=== PATIENT | male | born 1930 | race Caucasian/White ===

== ENCOUNTER 2016-10-24 17:11 | Inpatient (IN) | payer MEDICARE, OTHER ==
[~2016-10-24] VITALS: Ht 172.7 cm; Wt 76.5 kg
[~2016-10-24 17:11] MED LIST: ARICEPT5 MG PO; AZELASTINE137 MCG/0. NASAL; BAYER CHEWABLE81 MG PO; CELEXA20 MG PO; DIABETA5 MG PO; FERROUS SULFAT325 MG PO; GLUCOPHAGE500 MG PO; GLYBURIDE2.5 MG PO; ISOSORBIDE MONO60 M1 PO; LANOXIN125 MCG PO; LASIX20 MG PO; MEDROL DOSE PACK4 MG PO; MUCUS RELIEF400 MG PO; OMEGA 3 FISH OI1 CAP PO; OMNICEF300 MG PO; PRAVACHOL40 MG PO; PRILOSEC20 MG PO; VITAMIN D31000 UNIT PO; XARELTO20 MG PO; XOPENEX 1.1.25 MG/3 UPD; ZANTAC150 MG PO
--- NOTE | 2016-10-24 17:30 | NUR ---
RECEIVED PT VIA WHEELCHAIR ESCORTED BY HOSPITAL STAFF. WILL CONTINUE WITH ADMITTING PT AND CONTINUE TO MONITOR.
[2016-10-24 17:32] VITALS: BP 182/75; BMI 23.9
[2016-10-24 18:01] LABS: BASOPHILS 0.3 % (0.0-2.0); HEMATOCRIT 36.9 % (42.0-54.0); HEMOGLOBIN 11.3 g/dL (13.5-17.5); IMMATURE GRANULOCYTES 0.1 % (0-5); LYMPHOCYTES 12.8 % (15-50); MCH 24.9 pg (26.0-34.0); MCHC 30.6 g/dL (31.0-37.0); MCV 81.3 fL (80.0-100.0); MEAN PLATELET VOLUME 10.3 fL (7.4-10.4); MONOCYTES 13.2 % (2-11); NEUTROPHILS 68.6 % (40-80); RBC 4.54 10x6/uL (4.20-6.10); RDW 15.7 % (11.5-14.5); WBC 7.2 10x3/uL (4.8-10.8)
[2016-10-24 18:02] LABS: PLATELET COUNT 204 10x3/uL (130-400)
[2016-10-24 18:22] LABS: ALBUMIN 3.3 g/dL (3.4-5.0); ANION GAP 11.2 mmol/L (8-16); BILIRUBIN - TOTAL 0.18 mg/dL (0.2-1.3); CARBON DIOXIDE 31.3 mmol/L (21.0-32.0); CREATININE - SERUM 1.4 mg/dL (0.6-1.3); POTASSIUM - SERUM 4.5 mmol/L (3.5-5.1); PROTEIN - SERUM 6.7 g/dL (6.4-8.2)
--- NOTE | 2016-10-24 18:31 | NUR ---
QUICKSTART DONE, ADMISSION ASSESSMENT DONE, AND ADMISSION HISTORY DONE. PT COULD NOT TELL ME HIS HOME MEDICATIONS AND SON COULD NOT TELL ME WHAT HOME MEDICATIONS PT IS ON. OTHER SON WENT HOME TO GET PTS MEDICAIONS SO WE COULD UPDATE HOME MEDICATION LIST. AWAITING SON TO GET BACK WITH HOME MEDICAIONS AND WILL PASS THIS ON IN REPORT. PT IS ON ROOM AIR WITH O2 SAT AT 97%. ATTEMPTED IV X 2 STICKS, 22G INSERTED INTO PTS RIGHT AC, TOLERATED WELL. IV FLUIDS AND ANTIBIOTICS STARTED ORDERED WITH NS RUNNING AT 100CC. NON-SKID SOCKS PLACED ON PT AND YELLOW ID BAND. PT IS ALERT TO SELF AND ORIENTED TO PERSON AND PLACE BUT DISORIENTED TO TIME, PT STATED HE DID NOT KNOW WHAT YEAR IT IS. SON IS AT BEDSIDE. 1838- PT IS CURRENTLY UP ON SIDE OF BED EATING DINNER. SON IS AT BEDSIDE. WILL CONTINUE TO MONITOR AND AWAIT OTHER SON TO GET BACK WITH HOME MEDICATIONS TO UPDATE HOME MEDICATION LIST. WILL PASS THIS ON IN REPORT.
[2016-10-24 20:00] VITALS: BP 182/71
--- NOTE | 2016-10-24 21:37 | NUR ---
NURSE ROUNDS 19:00 - PT LYING IN BED, AWAKE, ALERT, EXTREMELY HARD OF HEARING, SON AT BEDSIDE. PT DENIES ANY ACUTE NEEDS. SON DID LEAVE BUT STATED HE WOULD BE BACK. CONTINUE TO MONITOR PT CLOSELY. BED LOW, CALL LIGHT IN REACH, AND I DEMONSTRATED TO PT HOW AND WHEN TO USE HIS CALL LIGHT. PT NODDED IN AGREEMENT THAT HE WOULD CALL FOR ANY ASSISTANCE. HOB 30 DEGREES.
--- NOTE | 2016-10-24 23:51 | NUR ---
RADHA PAD PLACED UNDER PT HIS SON HAS WARNED US THAT HE TENDS TO WANDER DURING THE NIGHT. PTS IS ALSO ADMITTED HERE R/T FALLING EARLIER IN THE DAY. THE FAMILY IS CONCERNED HE WILL TRY TO GET UP AND GO SEE HER. I WILL CONTINUE TO MONITOR HIM CLOSELY.
[2016-10-25] VITALS: BP 171/63
--- NOTE | 2016-10-25 01:35 | NUR ---
PT LYING ON HIS LEFTT SIDE, EYES CLOSED, RESPIRATIONS EVEN AND UNLABORED, CONTINUE TO MONITOR CLOSELY.
--- NOTE | 2016-10-25 03:50 | NUR ---
PT PULLED HIS IV OUT. WILL ATTEMPT TO RESITE.
--- NOTE | 2016-10-25 03:54 | NUR ---
BATH GIVEN AND LINENS CHANGED PER VERONICA RENU
[2016-10-25 04:00] VITALS: BP 179/79
[2016-10-25 05:10] LABS: BASOPHILS 0.2 % (0.0-2.0); EOSINOPHILS 6.2 % (0-7); HEMATOCRIT 33.6 % (42.0-54.0); HEMOGLOBIN 10.4 g/dL (13.5-17.5); IMMATURE GRANULOCYTES 0.2 % (0-5); LYMPHOCYTES 15.9 % (15-50); MCH 24.8 pg (26.0-34.0); MCV 80.2 fL (80.0-100.0); MEAN PLATELET VOLUME 10.1 fL (7.4-10.4); MONOCYTES 15.5 % (2-11); PLATELET COUNT 186 10x3/uL (130-400); RBC 4.19 10x6/uL (4.20-6.10); RDW 15.5 % (11.5-14.5); WBC 5.4 10x3/uL (4.8-10.8)
[2016-10-25 06:01] LABS: ALBUMIN 2.9 g/dL (3.4-5.0); ANION GAP 9.2 mmol/L (8-16); BILIRUBIN - TOTAL 0.34 mg/dL (0.2-1.3); CALCIUM 8.6 mg/dL (8.5-10.1); CARBON DIOXIDE 31.7 mmol/L (21.0-32.0); CREATININE - SERUM 1.5 mg/dL (0.6-1.3); POTASSIUM - SERUM 3.9 mmol/L (3.5-5.1); PROTEIN - SERUM 6.3 g/dL (6.4-8.2)
[2016-10-25 07:32] VITALS: BP 166/68
--- NOTE | 2016-10-25 07:49 | NUR ---
AM ROUNDING- PT LAYING ON LEFT SIDE WITH EYES CLOSED SLEEPING. SON IS AT BEDSIDE. PER REPORT FROM ENROLLMENT ELIGIBILITY REPRESENTATIVE NURSE COSTA, WE ARE STILL AWAITING OTHER SON TO BRING PTS HOME MEDICATIONS SO WE CAN UPDATE MEDICATION LIST AND SEE WHEN THE LAST TIME PT TOOK HIS HOME MEDICATIONS WAS. PER REPORT FROM ENROLLMENT ELIGIBILITY REPRESENTATIVE NURSE, PT PULLED OUT IV CATHETER ON ENROLLMENT ELIGIBILITY REPRESENTATIVE. WILL TRY AND CALL [facility] VASCULAR ACCESS NURSE TO SEE ABOUT RESITING IV. ON ROOM AIR. PT HAS HEARING AID TO LEFT EAR, PT IS VERY HARD OF HEARING. NO NEED AT CURRENT TIME. WILL CONTINUE TO MONITOR.
--- NOTE | 2016-10-25 08:08 | NUR ---
CALLED [facility] TO SEE ABOUT GETTING ANOTHER IV. LEFT VOICEMAIL. AWAITING CALLBACK.
--- NOTE | 2016-10-25 08:27 | NUR ---
IV access-22 gauge inserted in left hand . ANISH Yeager
[2016-10-25] MEDS ORDERED: GLYBURIDE2.5 MG PO (10:00)
[2016-10-25] MEDS ORDERED: GLYBURIDE5 M1 PO (10:00)
[2016-10-25] MEDS ORDERED: SINGULAIR10 MG PO (10:03)
[2016-10-25] MEDS ORDERED: DEXILANT60 MG PO (10:04)
--- NOTE | 2016-10-25 10:40 | NUR ---
SCDS PLACED ON PT ORDERED.
[2016-10-25 11:34] VITALS: BP 155/60
--- NOTE | 2016-10-25 12:17 | NUR ---
PTS OTHER SON IN ROOM. SON STATED HE DID NOT BRING PTS HOME MEDICATIONS BECAUSE DR. MORRIS WAS IN ROOM LAST NIGHT AND PER SON DR. MORRIS STATED HE HAD A LIST OF PTS HOME MEDICATIONS. I INFORMED PT THAT WE NEED TO KNOW WHEN THE LAST TIME PT TOOK HOME MEDICATIONS SO WE CAN UPDATE PTS HOME MEDICATION LIST. SON DID NOT KNOW. PT IS VERY LETHARGIC AND IS UNABLE TO TELL ME. WILL CONTINUE TO MONITOR AND SEE ABOUT GETTING AND UPDATE ON WHAT MEDICATIONS PT TOOK LAST.
--- NOTE | 2016-10-25 12:29 | NUR ---
ANISH CLIFFORD ON UNIT STATED THAT SHE TOOK CARE OF PTS MED REC AND HAD CALLED PTS PHARMACY TO SEE WHAT PT WAS CURRENTLY TAKING. ANISH CLIFFORD ALSO STATED THAT SHE HAD SPOKE WITH DR. MORRIS THIS MORNING ABOUT PTS MED REC.
[2016-10-25 12:44] VITALS: Ht 172.7 cm; Wt 76.5 kg
[2016-10-25 15:33] VITALS: BP 169/66
--- NOTE | 2016-10-25 16:56 | NUR ---
Patient Name: DADA GARVIN Admission Status: Urgent Accout number: [id number] Admission Date: 10-24-2016 : 1930 Admission Diagnosis: Attending: SANDER Current LOS: 1 Anticipated DC Date: Planned Disposition: Home Primary Insurance: MEDICARE A & B Discharge Planning Comments: * Is the patient Alert and Oriented? No 0 * How many steps to enter\exit or inside your home? RAMP 0 * PCP DR. MORRIS 0 * Pharmacy [facility] 0 * Preadmission Environment Home with Family 0 * ADLs Partial Dependent 0 * Partial ADLs (Assistance needed) Ambulation Bathing Dressing Medication Management Toileting Transfers 0 * Equipment Cane Nebulizer Oxygen Shower Chair Walker Wheelchair 0 * Other Equipment HOME OXYGEN ONLY, UNKNOWN PROVIDER NO MEDICAL EQUIPMENT PROVIDER PREFERENCE 0 * List name and contact numbers for known caregivers / representatives who currently or will assist patient after discharge: DEE GARVIN, SPOUSE, DADA GARVIN, JR, SON, BIBI MELO, DTR, 0 * Community resources currently utilized None 0 * Please name any agencies selected above. NONE 0 * Additional services required to return to the preadmission environment? No 0 * Can the patient safely return to the preadmission environment? Yes 0 * Has this patient been hospitalized within the prior 30 days at any hospital? No 0 CM MET WITH PT IN ROOM TO DISCUSS DISCHARGE PLANNING AND NEEDS. PT ORIENTED TO SELF ONLY, DIRECTED CM TO SPEAK TO FAMILY. CM MET WITH PT'S SPOUSE AND DAUGHTER IN ROOM 6009. PT'S SPOUSE REPORTS PT LIVING AT HOME DEPENDENT ON SHE AND ADULT CHILDREN FOR EVERYTHING EXCEPT EATING. PT HAS SPOUSE AND ADULT SON LIVING IN THE HOME. THEY HAVE NO OTHER OUTSIDE SERVICES ASSISTING IN THE HOME. CM DISCUSSED AVAILABILITY OF HOME HEALTH, REHAB SERVICES AND MEDICAL EQUIPMENT. PT'S SPOUSE DENIES DISCHARGE NEEDS, REPORTS HER SON WILL PICK PT UP FOR DISCHARGE HOME. PT'S SPOUSE REPORTS THAT THEY DO NOT SEE ANY BENEFIT FROM HOME HEALTH THEY BOTH HAVE USED THEM IN THE PAST; SPOUSE REPORTS FAMILY TAKES CARE OF THEIR NEEDS AT HOME. CM DISCUSSED INPATIENT AND [facility] REHAB SERVICES. PT'S SPOUSE AND DAUGHTER REPORT THAT PT WILL NOT AGREE TO GO ANYWHERE BUT HOME AND WOULD NOT BENEFIT FROM THE SERVICES DUE TO HIS ATTITUDE ABOUT BEING THERE. FAMILY REPORTS PLAN FOR BOTH PT AND SPOUSE TO RETURN HOME AT DISCHARGE. FAMILY PLANS TO TAKE PT HOME AT DISCHARGE AND DENIED DISCHARGE NEEDS AT THIS TIME, REFUSING HOME HEALTH, INPATIENT AND [facility] REHAB. CM TO FOLLOW AND ASSIST NEEDED. Architectural Administrative Assistant: Joshua Collazo
--- NOTE | 2016-10-25 18:01 | NUR ---
PT LAYING ON RIGHT SIDE WITH EYES CLOSED RESTING. DAUGHTER IS AT BEDSIDE STATING HIS FOOD TRAY IS GONE AND HAS NOT EATAN. CALLED DIETRY AND RE-ORDERED PT A NEW TRAY. WILL CONTINUE TO MONITOR.
[2016-10-25 20:00] VITALS: BP 122/54
--- NOTE | 2016-10-25 21:04 | NUR ---
PT LYING IN BED, EYES CLOSED, RESPIRATIONS EVEN AND UNLABORED. CONTINUE TO MONITOR CLOSELY.
[2016-10-26] VITALS: BP 168/72
[2016-10-26 04:00] VITALS: BP 126/60
--- NOTE | 2016-10-26 05:53 | NUR ---
PT LYING ON LEFT SIDE, EYES CLOSED, RESPIRATIONS EVEN AND UNLABORED. CONTINUE TO MONITOR CLOSELY. RADHA MAT IN PLACE, ALARM ON.
[2016-10-26 05:56] LABS: BASOPHILS 0 % (0.0-2.0); EOSINOPHILS 0 % (0-7); HEMATOCRIT 34.4 % (42.0-54.0); HEMOGLOBIN 10.6 g/dL (13.5-17.5); IMMATURE GRANULOCYTES 0.4 % (0-5); LYMPHOCYTES 9.8 % (15-50); MCH 24.6 pg (26.0-34.0); MCHC 30.8 g/dL (31.0-37.0); MCV 79.8 fL (80.0-100.0); MEAN PLATELET VOLUME 10.9 fL (7.4-10.4); NEUTROPHILS 87.8 % (40-80); PLATELET COUNT 220 10x3/uL (130-400); RBC 4.31 10x6/uL (4.20-6.10); RDW 15.5 % (11.5-14.5); WBC 4.9 10x3/uL (4.8-10.8)
[2016-10-26 06:04] LABS: ANION GAP 12.6 mmol/L (8-16); CALCIUM 8.9 mg/dL (8.5-10.1); CARBON DIOXIDE 27.5 mmol/L (21.0-32.0); CREATININE - SERUM 1.7 mg/dL (0.6-1.3); POTASSIUM - SERUM 4.1 mmol/L (3.5-5.1)
[2016-10-26 07:14] LABS: MAGNESIUM - SERUM 1.5 mg/dL (1.8-2.4); PHOSPHOROUS 2.6 mg/dL (2.5-4.9)
--- NOTE | 2016-10-26 07:31 | NUR ---
PT SITTING UP IN BED SLEEPING NO S/S DISTRESS NOTED WILL CONT TO MONITOR.
[2016-10-26 07:43] VITALS: BP 145/84
[2016-10-26 11:17] VITALS: BP 137/60
--- NOTE | 2016-10-26 12:05 | NUR ---
PT DENIES NEEDS AT THIS TIME. CALLED DR TRINIDAD OFFICE EARLIER AND UPDATED HIM ON BS THAT STILL HAD NOT GONE DOWN HE HAD WANTED ME TO. HE ORDERED HUMULIN LOW SLIDING SCALE. GIVEN WITH LUNCH.
--- NOTE | 2016-10-26 14:35 | NUR ---
RESUMED CARE OF PT AT THIS TIME PT LAYING IN BED NO DISTRESS OBSERVED CALL LIGHTIN REACH SRX2 BED LOW AND LOCKED IVP INFUSING FLUIDS ORDERD REESPERTIONS EVEN AND UNLABORED WILL MONITOR
[2016-10-26 15:52] VITALS: BP 130/54
--- NOTE | 2016-10-26 18:20 | NUR ---
PT RECIVED PD AND TOLERATED WELL DRAIN WITH NO COMPLICATIONS AND FILLED WITH NO COMPLICATIONS HEPRIN 1000 UNITS ADDED TO PD BAG. PT AMBULATORY WITH NO ASSISTANCE NEEDED AND IN ROOM AT BEDSIDE CALL LIGHT IN REACH SRX2 BED LOW AND LOCKED IVP SALINE LOCKED AND FLUSHED WITH 10CC NORMAL SALINE WILL MONITOR
--- NOTE | 2016-10-26 18:24 | NUR ---
PT LAYING IN BED DAUGHTER AT BED SIDE NO DISTRESS OBSERVED IVP INFUSING FLUIDS ORDERED AND RESPERATIONS EVEN AND UNLABORED CALL LIGHT IN REACH SRX2 BED LOW AND LOCKED WILL MONITOR
--- NOTE | 2016-10-26 19:43 | NUR ---
PT LYING IN BED, AWAKE, ALERT, ORIENTED, EXTREMELY HARD OF HEARING. PT DENIES ANY NEEDS. I AM COMMUNICATING WITH WRITTEN QUESTIONS AND ANSWERS. WILL CONTINUE TO MONITOR CLOSELY. RADHA MAT PLACED UNDER PT, ALARM ON.
[2016-10-26 20:00] VITALS: BP 133/55
[2016-10-27] VITALS: BP 129/57
--- NOTE | 2016-10-27 01:03 | NUR ---
PT OOB, CONFUSED, DISORIENTED, AND JUST PULLED HIS IV TO LEFT HAND OUT. WILL NOT RESITE AT THIS POINT, PT HAS PULLED 3 IV'S OUT THUS FAR. WILL RESITE IN AM WHEN PT IS MORE AWAKE, AND ALERT. RADHA MAT IN PLACE, BED ALARM ON, PT HAS BEEN RETURNED TO BED SAFELY AND WITHOUT DIFFICULTY. PT IS EXTREMELY HARD OF HEARING. CONTINUE TO MONITOR CLOSELY AND FREQUENTLY.
--- NOTE | 2016-10-27 02:55 | NUR ---
PT HAS CONTINUED TO DEMONSTRATE INCREASED CONFUSION, OOB CONTINUOUSLY, PT DOES NOT UNDERSTAND SIMPLE COMMANDS, PT IS EXTREMELY NATIVE, AND DEMONSTRATES DIFFICULTY UNDERSTANDING WHAT IS BEING SAID TO HIM. I HAVE ATTEMPTED TO WRITE QUESTIONS, AND STATEMENTS, HOWEVER PT LOOKS AT THE PAPER BLANKLY, HANDS IT BACK AND SMILES. RADHA MAT IN PLACE, ALARM ON. CONTINUE TO MONITOR CLOSELY. PT DID REFUSE A BATH/SHOWER ALSO.
[2016-10-27 04:00] VITALS: BP 121/46
[2016-10-27 05:43] LABS: BASOPHILS 0 % (0.0-2.0); EOSINOPHILS 0 % (0-7); HEMATOCRIT 29.7 % (42.0-54.0); HEMOGLOBIN 9.3 g/dL (13.5-17.5); IMMATURE GRANULOCYTES 0.3 % (0-5); LYMPHOCYTES 5.5 % (15-50); MCH 24.9 pg (26.0-34.0); MCHC 31.3 g/dL (31.0-37.0); MCV 79.4 fL (80.0-100.0); MONOCYTES 8.6 % (2-11); NEUTROPHILS 85.6 % (40-80); PLATELET COUNT 215 10x3/uL (130-400); RBC 3.74 10x6/uL (4.20-6.10)
--- NOTE | 2016-10-27 05:45 | NUR ---
PT LYING IN BED, EYES CLOSED, RESPIRATIONS EVEN AND UNLABORED. PT HAS CONTINUED TO GET OOB, BUT IS NOW CURRENTLY RESTING. CONTINUE TO MONITOR CLOSELY. RADHA MAT IN PLACE, ALARM ON.
[2016-10-27 05:59] LABS: WBC 12.1 10x3/uL (4.8-10.8)
[2016-10-27 06:06] LABS: ANION GAP 11.9 mmol/L (8-16); CALCIUM 8.5 mg/dL (8.5-10.1); CARBON DIOXIDE 27.4 mmol/L (21.0-32.0); CREATININE - SERUM 1.8 mg/dL (0.6-1.3); MAGNESIUM - SERUM 1.7 mg/dL (1.8-2.4); POTASSIUM - SERUM 4.3 mmol/L (3.5-5.1)
[2016-10-27 06:09] LABS: PHOSPHOROUS 4.3 mg/dL (2.5-4.9)
[2016-10-27 08:08] VITALS: BP 130/53
--- NOTE | 2016-10-27 09:00 | NUR ---
20 GAUGE PLACED IN RIGHT FOREARM. NS CONNECTED TO INFUSE VIA PUMP @ 75ML/HR. PATIENT TOLERATED WELL. NICOTINE PATCH PLACED ON RIGHT ARM, UNABLE TO LOCATE PREVIOUS PATCH. PATIENT WAS RESTING IN THE SUPINE POSITION. HAS NO NEEDS AT THIS TIME.
--- NOTE | 2016-10-27 09:40 | CN ---
PATIENT NAME:DADA FLANAGAN MEDICAL RECORD: [id number] : [birth year] LOCATION:[facility] D.2102 ADMIT DATE: 10/24/16 ACCOUNT: [id number] CONSULTING PHYSICIAN: MADALYN CONNOR MD REFERRING PHYSICIAN: ERWIN MORRIS DO DATE OF CONSULTATION: 10/25/2016 Consult Note CONSULT REQUESTING PHYSICIAN: Erwin Morris DO REASON FOR CONSULTATION: Acute exacerbation of COPD, cough with productive sputum and shortness of breath. HISTORY OF PRESENT ILLNESS: Mr. Flanagan is an 85-year-old gentleman who is very hard of hearing. The patient was admitted yesterday from Dr. Morris's office with questionable pneumonia. He was coughing, has shortness of breath with mild exertion. He was also hearing himself wheezing. Also, he has generalized body aches and pain. There is no recorded fever. REVIEW OF SYSTEMS: As in history of present illness. PAST MEDICAL HISTORY: 1. Hypertension. 2. Hard of hearing. 3. Diabetes mellitus type 2. 4. COPD. 5. Chronic hypoxic respiratory failure. PAST SURGICAL HISTORY: 1. He has a back surgery. 2. Nephrectomy. ALLERGIES: 1. ALLERGIC TO SULFA. 2. QUESTIONABLE TO ALBUTEROL. PRESENT MEDICATIONS: He is on Xopenex nebulizer. His present medication on [employer] is reviewed. PERSONAL AND SOCIAL HISTORY: The patient is still an everyday smoker. He is a nondrinker. FAMILY HISTORY: Noncontributory. PHYSICAL EXAMINATION: GENERAL: Now, the patient is lying comfortably in bed. He is not in acute distress. VITAL SIGNS: The blood pressure 169/66, pulse is 62, respiration is 18, temperature 97.5, SpO2 is 95% on 2 liters nasal cannula. HEENT: Conjunctiva is pink, sclerae nonicteric. NECK: Supple. No JVD. CHEST: There is prolonged expiration with wheezing. HEART: Rhythm regular, normal sound, no murmur. CONSULT REPORT [id number] DADA FLANAGAN ABDOMEN: Soft. Bowel sounds present. No hepatosplenomegaly. RECTAL: Deferred. EXTREMITIES: No cyanosis, no clubbing, no pedal edema. SKIN: Warm, normal turgor. CENTRAL NERVOUS SYSTEM: The patient is very hard of hearing. There is no obvious cranial nerve abnormality. CHEST RADIOGRAPH: There is hyperinflation. No acute infiltrates. LABORATORY DATA: CBC: The WBC is 5.4, hemoglobin is 10.4, hematocrit is 33.6, and the platelet count 186. Chemistry: Sodium is 139, potassium 3.9, BUN is 30, creatinine is 1.5. IMPRESSION: 1. Acute exacerbation of chronic obstructive pulmonary disease. 2. Tracheobronchitis. 3. Wheezing. 4. Tobacco dependence syndrome. 5. Chronic hypoxic respiratory failure. 6. Chronic kidney disease. The patient is status post nephrectomy. RECOMMENDATIONS: 1. Start him on Xopenex and ipratropium nebulizer. 2. Brovana and budesonide nebulizer. 3. Methylprednisolone IV. 4. Levaquin 500 mg IV q. 24. 5. Continue other medications as advised. Dr. Morris, once again, thank you for involving me in the care of Mr. Flanagan. TRANSINT:[id number] Voice Confirmation ID: [id number] DOCUMENT ID: [id number] MADALYN CONNOR MD at 0940 CC: ERWIN MORRIS DO [id number] DICTATION DATE: 10/25/16 1611 CREATIVE SERVICES COORDINATOR: 10/26/16 [address] [facility] [address] [place] [address]
--- NOTE | 2016-10-27 10:32 | NUR ---
PT ASSESSMENT COMPLETED AT THIS TIME NO DISTRESS OBSERVED CALL LIGHT IN REACH SR X2 SON IN ROOM WITH PT AND NO DISTRESS OBSERVED RESPERATIONS EVEN ON ROOM AIR AND STUDENT NURSE IN ROOM WITH STUDENT INSTRUCTOR AT BEDSIDE ADMIN AM MEDS WILL MONITOR
[2016-10-27 12:27] VITALS: BP 154/104
--- NOTE | 2016-10-27 13:24 | NUR ---
Nutrition follow-up: Diet: Regular as tolerated PO intake ~25-50% of meals; pt with increased confusion at this time per nursing Labs reviewed +BM Will continue to provide food choices and honor food preferences. RDN will order Ensure with meals RDN following.
[2016-10-27 16:00] VITALS: BP 173/61
--- NOTE | 2016-10-27 19:30 | NUR ---
RECEIVED PT IN BED AAOX4 VERY [facility] SON AT BEDSIDE PT DENIES ANY NEEDS OR DISCOMFORT NAD NOTED
[2016-10-27 20:00] VITALS: BP 166/65
--- NOTE | 2016-10-27 21:02 | NUR ---
FSBS 426 REGULAR INSULIN 12 UNITS GIVEN SQ LT ARM STAT LAB ORDERED
--- NOTE | 2016-10-27 21:15 | NUR ---
GLUCOSE 390 PER LAB
[2016-10-28] VITALS: BP 144/54
--- NOTE | 2016-10-28 02:32 | NUR ---
RESTING QUIETLY NAD NOTED
[2016-10-28 04:00] VITALS: BP 159/71
[2016-10-28 05:40] LABS: BASOPHILS 0 % (0.0-2.0); EOSINOPHILS 0 % (0-7); HEMOGLOBIN 9.1 g/dL (13.5-17.5); IMMATURE GRANULOCYTES 0.2 % (0-5); LYMPHOCYTES 5.2 % (15-50); MCH 24.7 pg (26.0-34.0); MCHC 31.4 g/dL (31.0-37.0); MCV 78.8 fL (80.0-100.0); MEAN PLATELET VOLUME 10.9 fL (7.4-10.4); MONOCYTES 6.8 % (2-11); NEUTROPHILS 87.8 % (40-80); PLATELET COUNT 204 10x3/uL (130-400); RBC 3.68 10x6/uL (4.20-6.10); RDW 16.2 % (11.5-14.5); WBC 10.5 10x3/uL (4.8-10.8)
[2016-10-28 05:51] LABS: ANION GAP 11.7 mmol/L (8-16); CALCIUM 8.4 mg/dL (8.5-10.1); CARBON DIOXIDE 26.5 mmol/L (21.0-32.0); CREATININE - SERUM 1.7 mg/dL (0.6-1.3); POTASSIUM - SERUM 4.2 mmol/L (3.5-5.1)
--- NOTE | 2016-10-28 06:32 | NUR ---
FSBS 153 PER LAB 2 UNITS REG INSULIN GIVEN SQ LT ARM
[2016-10-28] MEDS ORDERED: LEVAQUIN500 MG PO (07:41)
[2016-10-28 08:00] VITALS: BP 63/36
--- NOTE | 2016-10-28 08:40 | NUR ---
PATIENT SITTING UP ON THE BEDSIDE. HIS SON IS VISITING AND SITTING IN THE BEDSIDE CHAIR. HE IS VERY RINCON AND HAS A NOISE AMPLIFIER WITH A EAR PHONE IN THE LEFT EAR. HE STILL HAS GREAT DIFFICULTY HEARING SPOKEN WORD. INFORMED THEM THAT HE HAS BEEN DISCHARGED AND WILL BE GOING HOME TODAY. SON IS THANKFUL PER STATEMENT. HE STATES THAT THE PATIENT AND PATIENT'S LIVE WITH HIM. HE FEELS CONFIDENT IN PROVIDING THEIR CARE.
--- NOTE | 2016-10-28 10:26 | NUR ---
Patient Name: DADA GARVIN Encounter No: [id number] : 1930 Primary Insurance: MEDICARE A & B Anticipated DC Date: 10-28-2016 Planned Disposition: Home DCP follow-up note: CM RECEIVED DISCHARGE ORDER AND MET WITH PT AND SON IN ROOM TO DISCUSS DISCHARGE NEEDS AND PLANNING. CM DISCUSSED AVAILABILITY OF HOME HEALTH, REHAB SERVICES AND MEDICAL EQUIPMENT. PT'S SON DENIES DISCHARGE NEEDS, REPORTS KNOWING HOW TO ACCESS HOME SERVICES IF NEEDED AND SON WILL TRANSPORT PT HOME AT DISCHARGE. FAMILY WILL CONTINUE TO CARE FOR PT AT HOME. IMPORTANT MESSAGE FROM MEDICARE PROVIDED AND EXPLAINED. Joshua Collazo, CASE MANAGEMENT
[2016-10-28 12:00] VITALS: BP 145/53
--- NOTE | 2016-10-28 13:14 | NUR ---
DISCUSSED DISCHARGE INSTRUCTIONS WITH HIS SON/CAREGIVER. DISCUSSED MEDICATIONS, INCLUDING THE [facility] AND WHERE IT WAS CALLED IN TO. ALSO DISCUSSED THAT IT IS AN ANTIBIOTIC AND TO TAKE IT FOR 5 MORE DAYS. DISCUSSED FOLLOW UP APPTS AND HIGHLIGHTED THIS INFORMATION WELL POINTING OUT SOME IMPORTANT TIPS FOR MANAGING SOB. HE STATES THAT HE DOESN'T FORSEE HIS FATHER STOPPING TO SMOKE. HE DENIES NEEDING ANY DME OR HOME CARE. HE VOICES THAT HE HAS ALOT OF HELP AT HOME.
== END 2016-10-28 13:18 | disposition home or self-care (01) | DRG 190 ==
LOC: D.M2 17:11 → OBSVTIME 17:12 → D.M2 17:13
PROVIDERS: Internal Medicine Pulmonary Disease; ADMIT Family Medicine
DX: J44.0 Chronic obstructive pulmonary disease with (acute) lower respiratory infection (principal); J18.9 Pneumonia, unspecified organism; J96.11 Chronic respiratory failure with hypoxia; I13.0 Hypertensive heart and chronic kidney disease with heart failure and stage 1 through stage 4 chronic kidney disease, or unspecified chronic kidney disease; J44.1 Chronic obstructive pulmonary disease with (acute) exacerbation; E11.22 Type 2 diabetes mellitus with diabetic chronic kidney disease; N18.9 Chronic kidney disease, unspecified; E11.65 Type 2 diabetes mellitus with hyperglycemia; F17.200 Nicotine dependence, unspecified, uncomplicated; I50.9 Heart failure, unspecified

== ENCOUNTER → 2017-03-15 09:45 | Outpatient (CLI) | payer MEDICARE, OTHER ==
[2016-10-25 12:44] VITALS: BMI 23.8
[~2017-03-15 09:45] MED LIST changes: +DEXILANT60 MG PO; +GLYBURIDE5 M1 PO; +LEVAQUIN500 MG PO; +SINGULAIR10 MG PO
[2017-03-15 10:43] LABS: CREATININE - SERUM 1.5 mg/dL (0.6-1.3)
== END | disposition home or self-care (01) ==
LOC: D.CT 09:45
PROVIDERS: Internal Medicine Pulmonary Disease
DX: R93.8 Abnormal findings on diagnostic imaging of other specified body structures (principal); C34.90 Malignant neoplasm of unspecified part of unspecified bronchus or lung

== ENCOUNTER 2017-06-21 17:49 | Outpatient (CLI) | payer MEDICARE, OTHER ==
[2017-06-21 18:30] LABS: BASOPHILS 0.1 % (0-2); EOSINOPHILS 3.3 % (0-7); HEMOGLOBIN 13.2 g/dL (13.5-17.5); IMMATURE GRANULOCYTES 0.1 % (0-5); LYMPHOCYTES 14.4 % (15-50); MCH 28.5 pg (26.0-34.0); MCV 86.4 fL (80.0-100.0); MEAN PLATELET VOLUME 10.1 fL (7.4-10.4); MONOCYTES 10.5 % (2-11); NEUTROPHILS 71.6 % (40-80); PLATELET COUNT 169 10x3/uL (130-400); RBC 4.63 10x6/uL (4.20-6.10); RDW 14.6 % (11.5-14.5); WBC 7.2 10x3/uL (4.8-10.8)
[2017-06-21 18:46] LABS: ALBUMIN 2.9 g/dL (3.4-5.0); ANION GAP 7.3 mmol/L (8-16); BILIRUBIN - TOTAL 0.29 mg/dL (0.2-1.3); CALCIUM 9.2 mg/dL (8.5-10.1); CARBON DIOXIDE 33.7 mmol/L (21.0-32.0); CREATININE - SERUM 1.5 mg/dL (0.6-1.3); PROTEIN - SERUM 6.8 g/dL (6.4-8.2)
[2017-06-21 19:07] LABS: APPEARANCE CLEAR (CLEAR); BILIRUBIN NEGATIVE (NEGATIVE); COLOR YELLOW (YELLOW); GLUCOSE NEGATIVE (NEGATIVE); KETONE NEGATIVE (NEGATIVE); NITRITE NEGATIVE (NEGATIVE); PROTEIN 1+ mg/dL (NEGATIVE); UROBILINOGEN NORMAL (NORMAL)
[2017-06-21 19:40] LABS: DIGOXIN 0.89 ng/mL (0.90-2.00)
[2017-06-22 02:44] VITALS: BP 134/56; BMI 22.8
[2017-06-22 04:00] VITALS: BP 122/89
--- NOTE | 2017-06-22 07:30 | NUR ---
RECIEVED PT DURING WALKING ROUNDS, PT RESTING IN BED WITH NO COMPLAINTS OF PAIN OR DISCOMFORT AT THIS TIME. ASSESSMENT DONE PER FLOWSHEET AND CALL LIGHT WITHIN REACH. WILL CONTINUE TO MONITOR.
--- NOTE | 2017-06-22 08:26 | NUR ---
2300)ADMITTED FROM ER VIA BED.(06/21/17) ALERT NON-VERBAL AT PRESENT TIME. STATES IS VERY HARD OF HEARING.INCONTINENT OF BOWEL AND BLADDER ON ARRIVAL. BATH GIVEN. RADHA RAJI ON. PULLED IV OUT X3. RESITED FINAL TIME IN RIGHT HAND NS 25CC/HR.SKIN DRY AND FLAKY.NO SKIN BREAKAGE OBSERVED.WILL CONTINUE TO MONITOR FOR ANY CHGES. AND FOLLOW CURRENT PLAN OF CARE
[2017-06-22 08:31] VITALS: BP 121/55
--- NOTE | 2017-06-22 09:26 | NUR ---
CM NOTE: FAMILY HAS REQUESTED HOSPICE/DR. MORRIS NOTIFIED/REFERRAL SENT TO [facility] PER REQUEST OF FAMILY. [facility] MEETING FAMILY AT 10:25
[2017-06-22 11:29] LABS: BASOPHILS 0.1 % (0-2); EOSINOPHILS 0 % (0-7); HEMATOCRIT 39.9 % (42.0-54.0); HEMOGLOBIN 13.2 g/dL (13.5-17.5); IMMATURE GRANULOCYTES 0.1 % (0-5); LYMPHOCYTES 8.1 % (15-50); MCH 28.3 pg (26.0-34.0); MCHC 33.1 g/dL (31.0-37.0); MCV 85.6 fL (80.0-100.0); MEAN PLATELET VOLUME 10.1 fL (7.4-10.4); MONOCYTES 5.5 % (2-11); NEUTROPHILS 86.2 % (40-80); PLATELET COUNT 182 10x3/uL (130-400); RBC 4.66 10x6/uL (4.20-6.10); RDW 14.8 % (11.5-14.5); WBC 7.8 10x3/uL (4.8-10.8)
[2017-06-22 11:40] LABS: ANION GAP 14.9 mmol/L (8-16); CALCIUM 8.8 mg/dL (8.5-10.1); CARBON DIOXIDE 28.4 mmol/L (21.0-32.0); POTASSIUM - SERUM 4.3 mmol/L (3.5-5.1)
[2017-06-22 11:43] LABS: CREATININE - SERUM 1.9 mg/dL (0.6-1.3)
--- NOTE | 2017-06-22 13:58 | NUR ---
CM REASSESSMENT NOTE: PATIENT IS DISCHARGING HOME WITH HOSPICE. FAMILY WILL DRIVE PATIENT HOME. [facility] WILL BE NOTIFIED OF TIME PATIENT D/C.
[2017-06-22 13:59] VITALS: BP 130/61
--- NOTE | 2017-06-22 16:40 | NUR ---
PT DISCHARGED VIA WHEELCHAIR TO HOME WITH FAMILY
== END 2017-06-22 18:19 | disposition home or self-care (01) ==
LOC: OBSVTIME → D.OPS 17:49 → D.ER 17:49 → EDSTATUS 18:25 → D.MS 22:24 → D.ER 22:24 → OBSVTIME 22:24 → D.MS 06-22 18:19 → D.OPS 06-22 18:19
PROVIDERS: Emergency Medicine Emergency Medical Services; Family Medicine; Physician Assistant
DX: J44.1 Chronic obstructive pulmonary disease with (acute) exacerbation (principal); D64.9 Anemia, unspecified; R53.1 Weakness; R53.83 Other fatigue; J44.9 Chronic obstructive pulmonary disease, unspecified; R41.82 Altered mental status, unspecified; F03.90 Unspecified dementia, unspecified severity, without behavioral disturbance, psychotic disturbance, mood disturbance, and anxiety; I25.10 Atherosclerotic heart disease of native coronary artery without angina pectoris